=== PATIENT | female | born 1995 | race Caucasian/White ===

== ENCOUNTER 2017-04-30 15:26 | Emergency (ER) | payer MEDICAID ==
[~2017-04-30] VITALS: Ht 170.2 cm; Wt 104.5 kg
[2017-04-30 15:36] VITALS: BP 141/91
[2017-04-30] MEDS ORDERED: BUPIVAcaine 0.5% inj/PF 30 ml vial IJ ONE (16:15)
[2017-04-30] MEDS ORDERED: silver nitrate applicator stick TP ONE (16:20)
[2017-04-30] MEDS ORDERED: ACET-2119 PO (17:03)
== END 2017-04-30 17:09 | disposition home or self-care (01) ==
LOC: ER 15:27
DX: L60.0 Ingrowing nail (principal)
CPT/HCPCS: 11730; 99283; A6449; J3490